=== PATIENT | male | born 1960 | race American Indian/Alaskan Native ===

== ENCOUNTER 2017-10-24 14:17 | Emergency (ER) | payer SELFPAY ==
[2017-10-24 14:24] VITALS: BMI 25.0
[2017-10-24 14:28] VITALS: RESP 18; TEMP 98.9
--- NOTE | 2017-10-24 14:46 | C.PDOC ---
History Of Present Illness 57 year old male presents to the ED complaining of left inguinal pain radiating down his left leg for the past 5 days. He describes pain as intermittent and worse with standing up straight with associated numbness in his left thigh. He applied a topical ointment with mild relief. Patient denies any fever, testicular pain or swelling, vomiting, diarrhea, incontinence, or trauma/ injuries. 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 Time Seen by Provider: 10/24/17 14:31 Chief Complaint (Nursing): Abdominal Pain History Per: Patient History/Exam Limitations: no limitations Onset/Duration Of Symptoms: Days Current Symptoms Are (Timing): Still Present Severity: Severe Location Of Pain/Discomfort: LLQ Radiation Of Pain To:: Leg (Left) Quality Of Discomfort: "Pain" Associated Symptoms: denies: Fever, Nausea, Vomiting, Urinary Symptoms Exacerbating Factors: Upright Position Past Medical History Reviewed: Historical Data, Nursing Documentation, Vital Signs Vital Signs: Last Vital Signs Temp 98.9 F 10/24/17 14:24 Pulse 112 H 10/24/17 14:24 Resp 18 10/24/17 14:24 BP 161/110 H 10/24/17 14:24 Pulse Ox 98 10/24/17 17:46 - Medical History PMH: Hepatitis (C) Other PMH: History of GI disorders, Endocrine disorders, Musculoskeletal disorders Other Surgeries: Hx of surgeries - [facility] Procedures ING HERNIA REP-GRAFT NOS (12/21/12) Family History: States: No Known Family Hx - Social History Hx Alcohol Use: No Hx Substance Use: No - Immunization History Hx Tetanus Toxoid Vaccination: No Hx Influenza Vaccination: No Hx Pneumococcal Vaccination: No Review Of Systems Constitutional: Negative for: Fever Gastrointestinal: Negative for: Vomiting, Diarrhea Genitourinary: Negative for: Incontinence Musculoskeletal: Positive for: Other (Left inguinal pain radiating down left leg ) Neurological: Positive for: Numbness Physical Exam - Physical Exam Appears: Non-toxic Skin: Normal Color, Warm, Dry Head: Atraumatic, Normacephalic Eye(s): bilateral: Normal Inspection, EOMI Oral Mucosa: Moist Neck: Normal ROM Chest: Symmetrical Cardiovascular: Rhythm Regular Respiratory: Normal Breath Sounds, No Rales, No Rhonchi, No Wheezing Gastrointestinal/Abdominal: Soft, No Tenderness, No Mass, No Distention, No Guarding, No Hernia Back: Normal Inspection, No Vertebral Tenderness, No Paraspinal Tenderness Male Genital: No Testicular Tenderness, No Testicular Swelling, No Inguinal Tenderness, No Scrotal Swelling Extremity: No Normal ROM (Limited ROM due to pain to left leg ) Neurological/Psych: Oriented x3, Normal Speech Gait: Steady ED Course And Treatment - Laboratory Results Result Diagrams: 10/24/17 15:22 10/24/17 15:22 O2 Sat by Pulse Oximetry: 98 - CT Scan/US CT Abd/Pel Other Rad Studies (CT/US): Read By Radiologist, Radiology Report Reviewed CT/US Interpretation: Accession No. : [id number]. Patient Name / ID : ERIC OLSEN W / [id number]. Exam Date : 10/24/2017 16:17:06 ( Approved ). Study Comment : Sex / Age : M / 57Y. Creator : Lili Navarro. Dictator : Cylinder Dyer : Brush Loader And Handle Attacher : Anthony Vernon MD. Approver2 : Report Date : 10/24/2017 16:48:23. My Comment : . PROCEDURE: CT Abdomen and Pelvis . HISTORY: Left inguinal pain x 5 days. COMPARISON: None. TECHNIQUE: Contiguous axial images of the abdomen and pelvis performed following intravenous injection of 100 cc Visipaque 320 contrast material. Additional 2D sagittal and coronal reformats generated. This CT exam was performed using one or more of the following dose reduction techniques: Automated exposure control, adjustment of the mA and/or kV according to patient size, and/or use of iterative reconstruction technique. Radiation dose: Total exam DLP = 405.88 mGy-cm. FINDINGS: LOWER THORAX: Heart size within range of normal. No significant pericardial effusion. There is a small hiatal hernia with wall thickening of the distal esophagus likely due to protrusion of gastric mucosa. Possibility of esophagitis not excluded. Lung bases clear. No infiltrate effusion or basilar pneumothorax. LIVER: Liver exhibits normal size. Mild diffuse fatty hepatic infiltration. Portal and splenic veins opacified. The the. GALLBLADDER AND BILE DUCTS: Gallbladder is physiologically distended. No evidence of intraluminal gallbladder calculi. PANCREAS: Unremarkable. No mass. No ductal dilatation. SPLEEN: Unremarkable. No splenomegaly. ADRENALS: Unremarkable. KIDNEYS AND URETERS: There appears to be a small low-attenuation focus lateral aspect cortex upper/ midpole left kidney too small to characterize. . Recommend follow-up ultrasound to exclude the possibility of a hyperdense cyst or possibly a solid mass. BLADDER: Urinary bladder is incompletely distended which likely accounts for thick- walled appearance. The possibility of a cystitis not excluded. Correlation with urinalysis recommended. REPRODUCTIVE: Prostate gland measures approximately 4.1 cm in transverse dimension. APPENDIX: The appendix is not seen with certainty however no definitive evidence to suggest acute appendicitis. BOWEL: Evaluation of the bowel is limited due to the lack of oral contrast material. Stomach is collapsed which presumably accounts for thick-walled appearance. Gastritis or other intrinsic wall lesion not excluded. Visualized loops of small bowel exhibit normal contour and caliber. No evidence of acute mechanical small bowel obstruction. Stool and air seen throughout most of the colon with no definitive evidence of mural wall thickening or obstruction. PERITONEUM: Unremarkable. No fluid collection. No free air. Postoperative changes of right inguinal herniorrhaphy. There appears to be a small left inguinal hernia containing what probably represents some mesentery and possibly some granulation tissue. Small fat containing umbilical hernia. LYMPH NODES: Unremarkable. No enlarged lymph nodes. VASCULATURE: Unremarkable. No aortic aneurysm. BONES: Mild multilevel degenerative spondylosis of the lower thoracic and lumbar spine. OTHER FINDINGS: None. IMPRESSION: Postoperative changes of right inguinal herniorrhaphy. . There appears to be a small fat containing left inguinal hernia that may also contain some granulation tissue. Small fat containing umbilical hernia. Appendix not seen with any certainty however no obvious inflammatory changes right lower quadrant of the abdomen. Mild fatty hepatic infiltration. There is a small low -attenuation focus lateral cortex upper/midpole left kidney which is too small to characterize though could represent a small hyperdense cyst. Recommend follow-up ultrasound to exclude the possibility of a solid lesion. Medical Decision Making Medical Decision Making: Impression: Left Inguinal pain Order: - CT Abd/Pel - Labs - UA - Toradol 30mg IVP Patient assessed and examined. Orders placed in for blood work. Urine collected and sent to lab for analysis. CT Abd/Pel ordered and reviewed. Labs reviewed with no acute findings. CT of abdomen shows fat containing left inguinal hernia, no other acute abnormality. Patient reevaluated and resting supine on stretcher. I explained the results with patient, and provided copy of results. Patient does not have any tenderness on abdomen or signs of acute surgical abdomen. Patient is stable for discharge. Rx was given. Recommend follow up with clinic and surgery. Patient has history of prior hernia repair . Disposition Counseled Patient/Family Regarding: Studies Performed, Need For Followup, Rx Given - Disposition Referrals: Alfredo Garza Jr., MD [Staff Provider] - Nilda King MD [Staff Provider] - Disposition: HOME/ ROUTINE Disposition Time: 17:38 Condition: STABLE Additional Instructions: Follow up with the clinic in 2-5 days for further evaluation and seek surgical consult. Take medications as prescribed. Return to the emergency department at any time if symptoms persist or worsen. You may call [facility] service for any assistance [phone]. Prescriptions: Ibuprofen [Motrin] 600 mg PO Q8 #30 tab traMADol [Ultram] 50 mg PO Q8 #20 tab Instructions: Inguinal and Femoral (Groin) Hernias Forms: [employer] (Georgian), Work Excuse - POA Present On Arrival: None - Clinical Impression Clinical Impression: Left inguinal hernia - PA / HISTOLOGY SUPERVISOR / Resident Statement MD/DO has reviewed & agrees with the documentation as recorded. - Scribe Statement The provider has reviewed the documentation as recorded by the Scribe Izabela Hutton All medical record entries made by the Haimibmary jane were at my direction and personally dictated by me. I have reviewed the chart and agree that the record accurately reflects my personal performance of the history, physical exam, medical decision making, and the department course for this patient. I have also personally directed, reviewed, and agree with the discharge instructions and disposition.
[2017-10-24 15:30] LABS: BASO # 0.1 K/uL (0.0-0.2); BASO % 0.7 % (0.0-2.0); EOS % 0.5 % (0.0-4.0); HEMOGLOBIN 13.4 g/dL (12.0-18.0); LYMPH # 1.1 K/uL (1.0-4.3); LYMPH % 15.3 % (20.0-40.0); MEAN CELL VOLUME 88.9 fL (80.0-94.0); MEAN CORPUSCULAR HGB CONC 32.6 g/dL (33.0-37.0); MEAN PLATELET VOLUME 7.3 fL (7.2-11.7); MONO # 0.7 K/uL (0.0-0.8); MONO % 9.9 % (0.0-10.0); NEUT # 5.4 K/uL (1.8-7.0); NEUT % 73.6 % (50.0-75.0); RBC 4.63 Mil/uL (4.40-5.90); RED CELL DISTRIBUTION WIDTH 14.5 % (11.5-14.5); WHITE BLOOD COUNT 7.3 K/uL (4.8-10.8)
[2017-10-24 15:36] LABS: SQUAMOUS EPITHIAL < 1 /hpf (0-5); URINE BILIRUBIN NEGATIVE (NEGATIVE); URINE BLOOD NEGATIVE (NEGATIVE); URINE CLARITY Clear (Clear); URINE COLOR Yellow (YELLOW); URINE GLUCOSE (UA) NORMAL (Normal); URINE LEUKOCYTE ESTERASE NEG Leu/uL (Negative); URINE PROTEIN 1+ mg/dL (NEGATIVE); URINE UROBILINOGEN NORMAL mg/dL (0.2-1.0)
[2017-10-24 15:50] LABS: ALB/GLOB RATIO 1.2 (1.0-2.1); ALBUMIN 4.1 g/dL (3.5-5.0); ALT/SGPT 30 U/L (21-72); AST/SGOT 25 U/L (17-59); BLOOD UREA NITROGEN 14 mg/dL (9-20); CALCIUM 9.5 mg/dl (8.6-10.4); GFR AFRICAN-AMERICAN > 60; GFR NON-AFRICAN AMERICAN > 60; LIPASE 94 U/L (23-300)
[2017-10-24] MEDS ORDERED: Iodixanol 320 MG/ML 100 ML BOTTLE IV ONE (16:05)
--- NOTE | 2017-10-24 17:25 | CT ---
PROCEDURE: CT Abdomen and Pelvis . HISTORY: Left inguinal pain x 5 days COMPARISON: None. TECHNIQUE: Contiguous axial images of the abdomen and pelvis performed following intravenous injection of 100 cc Visipaque 320 contrast material. Additional 2D sagittal and coronal reformats generated. This CT exam was performed using one or more of the following dose reduction techniques: Automated exposure control, adjustment of the mA and/or kV according to patient size, and/or use of iterative reconstruction technique. Radiation dose: Total exam DLP = 405.88 mGy-cm. FINDINGS: LOWER THORAX: Heart size within range of normal. No significant pericardial effusion. There is a small hiatal hernia with wall thickening of the distal esophagus likely due to protrusion of gastric mucosa. Possibility of esophagitis not excluded. Lung bases clear. No infiltrate effusion or basilar pneumothorax. LIVER: Liver exhibits normal size. Mild diffuse fatty hepatic infiltration. Portal and splenic veins opacified. The the GALLBLADDER AND BILE DUCTS: Gallbladder is physiologically distended. No evidence of intraluminal gallbladder calculi PANCREAS: Unremarkable. No mass. No ductal dilatation. SPLEEN: Unremarkable. No splenomegaly. ADRENALS: Unremarkable. KIDNEYS AND URETERS: There appears to be a small low-attenuation focus lateral aspect cortex upper/ midpole left kidney too small to characterize. . Recommend follow-up ultrasound to exclude the possibility of a hyperdense cyst or possibly a solid mass. BLADDER: Urinary bladder is incompletely distended which likely accounts for thick-walled appearance. The possibility of a cystitis not excluded. Correlation with urinalysis recommended. REPRODUCTIVE: Prostate gland measures approximately 4.1 cm in transverse dimension. APPENDIX: The appendix is not seen with certainty however no definitive evidence to suggest acute appendicitis. BOWEL: Evaluation of the bowel is limited due to the lack of oral contrast material. Stomach is collapsed which presumably accounts for thick-walled appearance. Gastritis or other intrinsic wall lesion not excluded. Visualized loops of small bowel exhibit normal contour and caliber. No evidence of acute mechanical small bowel obstruction. Stool and air seen throughout most of the colon with no definitive evidence of mural wall thickening or obstruction. PERITONEUM: Unremarkable. No fluid collection. No free air. Postoperative changes of right inguinal herniorrhaphy. There appears to be a small left inguinal hernia containing what probably represents some mesentery and possibly some granulation tissue. Small fat containing umbilical hernia. LYMPH NODES: Unremarkable. No enlarged lymph nodes. VASCULATURE: Unremarkable. No aortic aneurysm. BONES: Mild multilevel degenerative spondylosis of the lower thoracic and lumbar spine. OTHER FINDINGS: None. IMPRESSION: Postoperative changes of right inguinal herniorrhaphy. . There appears to be a small fat containing left inguinal hernia that may also contain some granulation tissue. Small fat containing umbilical hernia. Appendix not seen with any certainty however no obvious inflammatory changes right lower quadrant of the abdomen. Mild fatty hepatic infiltration. There is a small low-attenuation focus lateral cortex upper/midpole left kidney which is too small to characterize though could represent a small hyperdense cyst. Recommend follow-up ultrasound to exclude the possibility of a solid lesion.
[2017-10-24 18:03] VITALS: BP 149/94; PULSE 92
[2017-10-24 18:31] VITALS: O2SAT 98
== END 2017-10-24 18:36 | disposition home or self-care (01) ==
LOC: C.ER 14:17
DX: K40.90 Unilateral inguinal hernia, without obstruction or gangrene, not specified as recurrent (principal)
CPT/HCPCS: 74177; 80053; 81001; 83690; 85025; 96374; 99285; J1885; Q9967

== ENCOUNTER 2017-10-26 08:15 | Inpatient (IN) | payer SELFPAY ==
[2017-10-26 08:16] VITALS: BMI 25.0
[2017-10-26 09:34] LABS: BASO % 0.7 % (0.0-2.0); EOS # 0.1 K/uL (0.0-0.7); EOS % 1.8 % (0.0-4.0); HEMOGLOBIN 13.4 g/dL (12.0-18.0); LYMPH # 1.1 K/uL (1.0-4.3); LYMPH % 20.8 % (20.0-40.0); MEAN CORPUSCULAR HEMOGLOBIN 29.9 pg (27.0-31.0); MEAN CORPUSCULAR HGB CONC 33.6 g/dL (33.0-37.0); MEAN PLATELET VOLUME 7.7 fL (7.2-11.7); MONO # 0.6 K/uL (0.0-0.8); MONO % 11.2 % (0.0-10.0); NEUT # 3.5 K/uL (1.8-7.0); NEUT % 65.5 % (50.0-75.0); NRBC % 0.1 % (0.0-2.0); RBC 4.48 Mil/uL (4.40-5.90); RED CELL DISTRIBUTION WIDTH 14.7 % (11.5-14.5); WHITE BLOOD COUNT 5.3 K/uL (4.8-10.8)
[2017-10-26 09:49] LABS: PROTHROMBIN TIME 11.1 SECONDS (9.7-12.2)
[2017-10-26 09:55] LABS: ALB/GLOB RATIO 1.1 (1.0-2.1); ALBUMIN 4.1 g/dL (3.5-5.0); ALT/SGPT 26 U/L (21-72); AST/SGOT 55 U/L (17-59); BLOOD UREA NITROGEN 18 mg/dL (9-20); CALCIUM 8.9 mg/dl (8.6-10.4); GFR AFRICAN-AMERICAN > 60; GFR NON-AFRICAN AMERICAN > 60; LIPASE 85 U/L (23-300)
--- NOTE | 2017-10-26 10:26 | C.PDOC ---
History Of Present Illness 57-year-old male, presents to the emergency department with complaints of left lower quadrant abdominal and left inguinal pain ongoing for the past few days. Pain worsened this morning, prompting visit. Patient recently diagnosed with left inguinal hernia. He is also complaining of new onset left thigh pain. Denies any back pain, trauma/injury, chest pain, nausea/vomiting, diarrhea, symptoms, or ny other associated symptoms. No other complaints at this time. Time Seen by Provider: 10/26/17 08:56 Chief Complaint (Nursing): Abdominal Pain History Per: Patient History/Exam Limitations: no limitations Current Symptoms Are (Timing): Still Present Severity: Moderate Past Medical History Reviewed: Historical Data, Nursing Documentation, Vital Signs Vital Signs: Last Vital Signs Temp 98.2 F 10/26/17 08:35 Pulse 77 10/26/17 08:35 Resp 20 10/26/17 08:35 BP 170/101 H 10/26/17 08:35 Pulse Ox 97 10/26/17 11:21 - Medical History PMH: Hepatitis (C) Denies: Chronic Kidney Disease - [facility] Procedures ING HERNIA REP-GRAFT NOS (12/21/12) Family History: States: No Known Family Hx - Social History Hx Alcohol Use: No Hx Substance Use: No - Immunization History Hx Tetanus Toxoid Vaccination: No Hx Influenza Vaccination: No Hx Pneumococcal Vaccination: No Review Of Systems Constitutional: Negative for: Fever, Chills Respiratory: Negative for: Shortness of Breath Gastrointestinal: Positive for: Abdominal Pain. Negative for: Nausea, Vomiting , Diarrhea Genitourinary: Positive for: Other (L inguinal pain) Musculoskeletal: Positive for: Leg Pain (L thigh pain). Negative for: Back Pain Neurological: Negative for: Weakness, Numbness, Headache, Dizziness Physical Exam - Physical Exam Appears: Non-toxic, No Acute Distress Skin: Normal Color, Warm, Dry, No Rash Head: Atraumatic, Normacephalic Eye(s): bilateral: Normal Inspection, PERRL, EOMI Nose: Normal Oral Mucosa: Moist Lips: Normal Appearing Neck: Normal ROM Chest: Symmetrical Cardiovascular: Rhythm Regular, No Murmur Respiratory: Normal Breath Sounds, No Accessory Muscle Use Gastrointestinal/Abdominal: Soft, No Tenderness, No Guarding, No Rebound Male Genital: No Testicular Tenderness, No Testicular Swelling, Inguinal Tenderness (Left), No Inguinal Swelling, No Scrotal Swelling Extremity: Normal ROM, No Tenderness, No Calf Tenderness, No Deformity, No Swelling Neurological/Psych: Oriented x3, Normal Speech ED Course And Treatment - Laboratory Results Result Diagrams: 10/26/17 09:24 10/26/17 09:24 ECG: Interpreted By Me, Viewed By Me ECG Rhythm: Sinus Rhythm ECG Interpretation: No Acute Changes Interpretation Of ECG: LVH Rate From EC O2 Sat by Pulse Oximetry: 97 (RA) Pulse Ox Interpretation: Normal Medical Decision Making Medical Decision Makin:[address] Garza, states to admit pt for OR. Surgery resident notified. Disposition Discussed With : Alfredo Garza Jr. Counseled Patient/Family Regarding: Studies Performed, Diagnosis - Disposition Disposition: HOSPITALIZED Disposition Time: 10:26 Condition: FAIR - Clinical Impression Clinical Impression: Inguinal hernia - Scribe Statement The provider has reviewed the documentation as recorded by the Scribe (Amy Perkins) All medical record entries made by the Scribe were at my direction and personally dictated by me. I have reviewed the chart and agree that the record accurately reflects my personal performance of the history, physical exam, medical decision making, and the department course for this patient. I have also personally directed, reviewed, and agree with the discharge instructions and disposition.
--- NOTE | 2017-10-26 11:00 | RAD ---
Date of service: 10/26/2017 PROCEDURE: Radiographs of the Lumbar Spine. HISTORY: thigh pain COMPARISON: CT scan of the abdomen and pelvis dated 10/24/2017. FINDINGS: BONES: Dextro convex curvature of the lumbar spine centered at L3. No listhesis. No fracture. Endplate changes. DISC SPACES: Multilevel disc space narrowing. OTHER FINDINGS: None. IMPRESSION: No acute fracture. Multilevel degenerative changes.
[2017-10-26 12:29] LABS: URINE BILIRUBIN NEGATIVE (NEGATIVE); URINE BLOOD NEGATIVE (NEGATIVE); URINE CLARITY Clear (Clear); URINE COLOR Yellow (YELLOW); URINE GLUCOSE (UA) NORMAL (Normal); URINE LEUKOCYTE ESTERASE NEG Leu/uL (Negative); URINE PROTEIN NEGATIVE (NEGATIVE); URINE UROBILINOGEN NORMAL mg/dL (0.2-1.0)
[2017-10-26] MEDS ORDERED: Propofol 10 mg/ml Inj (20 ML) ONE (14:24)
[2017-10-26] MEDS ORDERED: Midazolam 2 MG/2 ML VIAL ONE (14:24)
[2017-10-26] MEDS ORDERED: ceFAZolin IV 2 gm in Dextrose 4 GM/100 ML BAG IVPB ONE (14:32)
--- NOTE | 2017-10-26 14:52 | CP.PCM.HP ---
History of Present Illness - History of Present Illness History of Present Illness: Surgery: Dr. Garza CC: L inguinal hernia HPI: 57M w. pmh of Hep C presents w. left groin pain x 1 week. Pt states that the pain is constant with no alleviating factors. The pain radiates down his inner thigh. He states that the pain is accompanied by a reducible mass. He denies F/C. No N/V/D. No change in bowel habits. PMH: Hep-C PSH: R inguinal hernia repair Meds: MAR reviewed NKDA Social: No ETOH/Tobacco/Drugs Fhx: Non-contributory Present on Admission - Present on Admission Any Indicators Present on Admission: No Review of Systems - Review of Systems All systems: reviewed and no additional remarkable complaints except Past Patient History - Past Medical History & Family History Past Medical History?: Yes - Past Social History Smoking Status: Never Smoked - CARDIAC Hx Cardiac Disorders: No - PULMONARY Hx Respiratory Disorders: No - NEUROLOGICAL Hx Neurological Disorder: No - HEENT Hx HEENT Problems: No - RENAL Hx Chronic Kidney Disease: No - ENDOCRINE/METABOLIC Hx Endocrine Disorders: Yes (IMPAIRED GLUCOSE INTOLERANCE) - HEMATOLOGICAL/ONCOLOGICAL Hx Blood Disorders: Yes Hx Hepatitis C: Yes - INTEGUMENTARY Hx Dermatological Problems: No - MUSCULOSKELETAL/RHEUMATOLOGICAL Hx Musculoskeletal Disorders: Yes Hx Back Pain: Yes - GASTROINTESTINAL Hx Gastrointestinal Disorders: Yes Other/Comment: Hernia repair - GENITOURINARY/GYNECOLOGICAL Hx Genitourinary Disorders: No - PSYCHIATRIC Hx Substance Use: No - SURGICAL HISTORY Hx Surgeries: Yes Hx Herniorrhaphy: Yes - ANESTHESIA Hx Anesthesia: Yes Hx Anesthesia Reactions: No Hx Malignant Hyperthermia: No Meds Allergies/Adverse Reactions: Allergies Allergy/AdvReac Type Severity Reaction Status Date / Time No Known Allergies Allergy Verified 10/24/17 14:23 Physical Exam - Constitutional Appears: Non-toxic, No Acute Distress - Head Exam Head Exam: ATRAUMATIC, NORMOCEPHALIC - Eye Exam Eye Exam: EOMI - ENT Exam ENT Exam: Mucous Membranes Moist - Neck Exam Neck exam: Positive for: Full Rom - Respiratory Exam Respiratory Exam: NORMAL BREATHING PATTERN. absent: Accessory Muscle Use, Respiratory Distress - Cardiovascular Exam Cardiovascular Exam: REGULAR RHYTHM - GI/Abdominal Exam Additional comments: Reducible L inguinal hernia, tender to palpation - Extremities Exam Extremities exam: Positive for: calf tenderness - Neurological Exam Neurological exam: Alert, Oriented x3 Results - Vital Signs Recent Vital Signs: Last Vital Signs Temp 98.7 F 10/26/17 12:43 Pulse 73 10/26/17 12:43 Resp 20 10/26/17 12:43 BP 165/105 H 10/26/17 12:43 Pulse Ox 98 10/26/17 12:43 - Labs Result Diagrams: 10/26/17 09:24 10/26/17 09:24 Labs: Laboratory Results - last 24 hr 10/26/17 10/26/17 10/26/17 09:24 09:24 09:36 WBC 5.3 RBC 4.48 Hgb 13.4 Hct 39.9 MCV 89.0 MCH 29.9 MCHC 33.6 RDW 14.7 H Plt Count 231 MPV 7.7 Neut % (Auto) 65.5 Lymph % (Auto) 20.8 [place] % (Auto) 11.2 H Eos % (Auto) 1.8 Baso % (Auto) 0.7 Neut # (Auto) 3.5 Lymph # (Auto) 1.1 [place] # (Auto) 0.6 Eos # (Auto) 0.1 Baso # (Auto) 0.0 PT 11.1 INR 1.0 APTT 24 Sodium 142 Potassium 4.6 Chloride 105 Carbon Dioxide 27 Anion Gap 14 BUN 18 Creatinine 0.8 Est GFR ( Amer) > 60 Est GFR (Non-Af Amer) > 60 Random Glucose 100 Calcium 8.9 Total Bilirubin 0.8 AST 55 ALT 26 Alkaline Phosphatase 80 Total Protein 7.7 Albumin 4.1 Globulin 3.6 Albumin/Globulin Ratio 1.1 Lipase 85 Urine Color Urine Clarity Urine pH Ur Specific [place] Urine Protein Urine Glucose (UA) Urine Ketones Urine Blood Urine Nitrate Urine Bilirubin Urine Urobilinogen Ur Leukocyte Esterase Urine WBC (Auto) Urine RBC (Auto) Blood Type Antibody Screen 10/26/17 10/26/17 09:36 12:06 WBC RBC Hgb Hct MCV MCH MCHC RDW Plt Count MPV Neut % (Auto) Lymph % (Auto) [place] % (Auto) Eos % (Auto) Baso % (Auto) Neut # (Auto) Lymph # (Auto) [place] # (Auto) Eos # (Auto) Baso # (Auto) PT INR APTT Sodium Potassium Chloride Carbon Dioxide Anion Gap BUN Creatinine Est GFR ( Amer) Est GFR (Non-Af Amer) Random Glucose Calcium Total Bilirubin AST ALT Alkaline Phosphatase Total Protein Albumin Globulin Albumin/Globulin Ratio Lipase Urine Color Yellow Urine Clarity Clear Urine pH 5.0 Ur Specific [place] 1.029 Urine Protein Negative Urine Glucose (UA) Normal Urine Ketones Trace Urine Blood Negative Urine Nitrate Negative Urine Bilirubin Negative Urine Urobilinogen Normal Ur Leukocyte Esterase Neg Urine WBC (Auto) 2 Urine RBC (Auto) 3 Blood Type O NEGATIVE Antibody Screen Negative Assessment & Plan - Assessment and Plan (Free Text) Assessment: 57M w. L inguinal hernia -To OR this afternoon -NPO -EKG -consent in chart -d/w attending Natalya PGY4
[2017-10-26] MEDS ORDERED: Lidocaine Hydrochloride 0 ML INJ ONE (14:56)
[2017-10-26] MEDS ORDERED: Sodium Chloride 0.9% 1,000 ML IV SCH (15:00)
[2017-10-26] MEDS ORDERED: Succinylcholine Chloride 20 mg/ml Syr (5 ml) IV ONE (15:01)
[2017-10-26] MEDS ORDERED: Bupivacaine 0.25% 20 ML INJ IJ ONE (15:03)
[2017-10-26] MEDS: HYDROmorphone 0.5 mg/0.5 ml ISec IVP PRN ×2 (16:34→16:54)
--- NOTE | 2017-10-26 17:29 | PCM.SURG1 ---
Surgeon's Initial Post Op Note - Surgeon's Notes Surgeon: Dr. Garza [employer] Specialist: Dr. Castaneda PGY3 Type of Anesthesia: General Endo Pre-Operative Diagnosis: left inguinal hernia Operative Findings: left direct inguinal hernia Post-Operative Diagnosis: left direct inguinal hernia Operation Performed: left direct inguinal hernia repair with mesh placement Specimen/Specimens Removed: none Estimated Blood Loss: EBL {In ML}: 15 Blood Products Given: N/A Drains Used: No Drains Post-Op Condition: Good Date of Surgery/Procedure: 10/26/17 Time of Surgery/Procedure: 15:00
[2017-10-26] MEDS ORDERED: Lactated Ringer's 1,000 ML IV ONE (17:30)
[2017-10-26] MEDS: Oxycodone/Acetaminophen 5/325 mg Tab PO PRN (18:06)
[2017-10-26 22:07] VITALS: RESP 20
--- NOTE | 2017-10-27 01:30 | OP ---
PROCEDURE DATE: 10/26/2017 PREOPERATIVE DIAGNOSIS: Incarcerated left inguinal hernia. POSTOPERATIVE DIAGNOSIS: Incarcerated left inguinal hernia. PROCEDURE CARRIED OUT: Repair of incarcerated left inguinal hernia. SURGEON: Alfredo Garza Jr., MD. CARBON ACCOUNTANT: Magan Castaneda DO ANESTHESIOLOGIST: Mr. Amor. INDICATION: The patient is a middle-aged man with history previous right inguinal hernia, made multiple trips to the emergency room, came again to the emergency room this morning with severe pain in the left groin. Previous imaging has confirmed the presence of left inguinal hernia. OPERATIVE FINDINGS: This was a direct hernia. There was no indirect component. There was no bowel incarcerated, it was simply omentum, which was easily reduced. DESCRIPTION OF PROCEDURE: The patient was given general anesthesia and intravenous antibiotics. Venodyne boots were applied. The skin was then draped after washing and covering this and antibiotics given. An incision was made exposing the external oblique. The external oblique was exposed. The cord and its contents identified. The an of indirect hernia sac identified. The direct sac is identified. A PHS (Prolene hernia system) placed into the preperitoneal space and unfurled appropriately. After this had been done, it was secured to the surrounding fascia. The skin was closed with subcuticular closure and Steri-Strips. Blood loss for the procedure was 10 mL. Operation carried out was repair of incarcerated left inguinal hernia. This was an emergency procedure carried out on an emergent basis. Alfredo Garza Jr., MD
[2017-10-27] MEDS: Oxycodone/Acetaminophen 5/325 mg Tab PO PRN ×3 (07:00→20:10)
[2017-10-27] MEDS: Enoxaparin 40 mg Syringe SC SCH (10:03)
--- NOTE | 2017-10-27 12:22 | CP.PCM.PN ---
Subjective - Date & Time of Evaluation Date of Evaluation: 10/27/17 Time of Evaluation: 10:25 - Subjective Subjective: Patient seen and examined. No acute events over night. Afebrile. Complaining of left groin pain. Surgical site is c/d/i. Objective - Vital Signs/Intake and Output Vital Signs (last 24 hours): Temp Pulse Resp BP Pulse Ox 99.4 F 82 20 147/84 97 10/27/17 07:00 10/27/17 07:00 10/27/17 07:00 10/27/17 07:00 10/27/17 07:00 Intake and Output: 10/27/17 10/27/17 06:59 18:59 Intake Total 1900 Output Total 900 Balance 1000 - Medications Medications: Current Medications Enoxaparin Sodium (Lovenox) 40 mg SC DAILY [facility] Last Admin: 10/27/17 10:03 Dose: 40 mg Oxycodone/Acetaminophen (Percocet 5/325 Mg Tab) 1 tab PO Q4H PRN PRN Reason: Pain, moderate (4-7) Stop: 10/29/17 17:22 Last Admin: 10/27/17 11:22 Dose: 1 tab Oxycodone/Acetaminophen (Percocet 5/325 Mg Tab) 2 tab PO Q4H PRN PRN Reason: Pain, severe (8-10) Stop: 10/30/17 12:19 Sennosides (Senokot Tab) 17.2 mg PO [facility] Last Admin: 10/26/17 23:14 Dose: 17.2 mg - Labs Labs: 10/26/17 09:24 10/26/17 09:24 PT 11.1 SECONDS (9.7-12.2) 10/26/17 09:36 INR 1.0 10/26/17 09:36 APTT 24 SECONDS (21-34) 10/26/17 09:36 - Constitutional Appears: No Acute Distress - Head Exam Head Exam: NORMOCEPHALIC - Eye Exam Eye Exam: EOMI Pupil Exam: NORMAL ACCOMODATION - ENT Exam ENT Exam: Mucous Membranes Moist - Respiratory Exam Respiratory Exam: NORMAL BREATHING PATTERN - Cardiovascular Exam Cardiovascular Exam: +S1, +S2 - Neurological Exam Neurological Exam: Alert, Awake, Oriented x3 - Skin Skin Exam: Dry, Intact Assessment and Plan - Assessment and Plan (Free Text) Assessment: 57M with left direct inguinal hernia s/p repair w/ mesh placement POD1 Plan: -Regular diet -Encourage incentive spirometer -C/w analgesics -Encourage ambulation Further recs per Dr. Kayla Frye PGY3
[2017-10-28] MEDS: Oxycodone/Acetaminophen 5/325 mg Tab PO PRN ×3 (05:17→09:25)
[2017-10-28 08:03] VITALS: BP 169/104; PULSE 84; TEMP 98.4; O2SAT 97
--- NOTE | 2017-10-28 08:17 | CP.PCM.PN ---
Subjective - Date & Time of Evaluation Date of Evaluation: 10/28/17 Time of Evaluation: 08:13 - Subjective Subjective: General Surgery Progress Note for Dr. Garza 57M seen and evaluated this AM. Pt resting comfortably in bed. No acute events overnight. Pain is present and incision site but is well controlled. Admits BM and passing flatus. Denies f/c, n/v/d, SOB, and CP. Objective - Vital Signs/Intake and Output Vital Signs (last 24 hours): Temp Pulse Resp BP Pulse Ox 98.4 F 84 20 169/104 H 97 10/28/17 07:52 10/28/17 07:52 10/28/17 07:52 10/28/17 07:52 10/28/17 07:52 Intake and Output: 10/28/17 10/28/17 06:59 18:59 Intake Total 450 Output Total 350 Balance 100 - Medications Medications: Current Medications Enoxaparin Sodium (Lovenox) 40 mg SC DAILY [facility] Last Admin: 10/27/17 10:03 Dose: 40 mg Oxycodone/Acetaminophen (Percocet 5/325 Mg Tab) 1 tab PO Q4H PRN PRN Reason: Pain, moderate (4-7) Stop: 10/29/17 17:22 Last Admin: 10/28/17 05:21 Dose: 1 tab Oxycodone/Acetaminophen (Percocet 5/325 Mg Tab) 2 tab PO Q4H PRN PRN Reason: Pain, severe (8-10) Stop: 10/30/17 12:19 Sennosides (Senokot Tab) 17.2 mg PO [facility] Last Admin: 10/27/17 21:32 Dose: 17.2 mg - Labs Labs: 10/26/17 09:24 10/26/17 09:24 PT 11.1 SECONDS (9.7-12.2) 10/26/17 09:36 INR 1.0 10/26/17 09:36 APTT 24 SECONDS (21-34) 10/26/17 09:36 - Constitutional Appears: Well, Non-toxic, No Acute Distress - Head Exam Head Exam: ATRAUMATIC, NORMAL INSPECTION, NORMOCEPHALIC - Eye Exam Eye Exam: EOMI, Normal appearance - Respiratory Exam Respiratory Exam: Clear to Ausculation Bilateral, NORMAL BREATHING PATTERN - Cardiovascular Exam Cardiovascular Exam: REGULAR RHYTHM, +S1, +S2. absent: Murmur - GI/Abdominal Exam GI & Abdominal Exam: Soft, Normal Bowel Sounds. absent: Tenderness - Neurological Exam Neurological Exam: Alert, Awake, Oriented x3 - Psychiatric Exam Psychiatric exam: Normal Affect, Normal Mood - Skin Skin Exam: Dry, Intact, Normal Color. absent: Abrasion Assessment and Plan - Assessment and Plan (Free Text) Assessment: 57M s/p left inguinal hernia repair POD2 Plan: c/w pain control encourage ambulation and IS use no further surgical intervention at this time cleared for discharge please reconsult as needed Jj Hager PGY1
--- NOTE | 2017-10-28 08:58 | CP.PCM.DIS ---
Provider - Provider Date of Admission: 10/26/17 10:25 Attending physician: Alfredo Garza Jr, MD Time Spent in preparation of Discharge (in minutes): 30 Hospital Course - Lab Results Lab Results: Micro Results 10/26/17 12:06 Urine Urine Culture - Final No Growth (<1,000 CFU/ML) Most Recent Lab Values WBC 5.3 K/uL (4.8-10.8) 10/26/17 09:24 RBC 4.48 Mil/uL (4.40-5.90) 10/26/17 09:24 Hgb 13.4 g/dL (12.0-18.0) 10/26/17 09:24 Hct 39.9 % (35.0-51.0) 10/26/17 09:24 MCV 89.0 fL (80.0-94.0) 10/26/17 09:24 MCH 29.9 pg (27.0-31.0) 10/26/17 09:24 MCHC 33.6 g/dL (33.0-37.0) 10/26/17 09:24 RDW 14.7 % (11.5-14.5) H 10/26/17 09:24 Plt Count 231 K/uL (130-400) 10/26/17 09:24 MPV 7.7 fL (7.2-11.7) 10/26/17 09:24 Neut % (Auto) 65.5 % (50.0-75.0) 10/26/17 09:24 Lymph % (Auto) 20.8 % (20.0-40.0) 10/26/17 09:24 Pender % (Auto) 11.2 % (0.0-10.0) H 10/26/17 09:24 Eos % (Auto) 1.8 % (0.0-4.0) 10/26/17 09:24 Baso % (Auto) 0.7 % (0.0-2.0) 10/26/17 09:24 Neut # (Auto) 3.5 K/uL (1.8-7.0) 10/26/17 09:24 Lymph # (Auto) 1.1 K/uL (1.0-4.3) 10/26/17 09:24 Pender # (Auto) 0.6 K/uL (0.0-0.8) 10/26/17 09:24 Eos # (Auto) 0.1 K/uL (0.0-0.7) 10/26/17 09:24 Baso # (Auto) 0.0 K/uL (0.0-0.2) 10/26/17 09:24 PT 11.1 SECONDS (9.7-12.2) 10/26/17 09:36 INR 1.0 10/26/17:36 APTT 24 SECONDS (21-34) 10/26/17 09:36 Sodium 142 mmol/L (132-148) 10/26/17 09:24 Potassium 4.6 mmol/L (3.6-5.2) 10/26/17 09:24 Chloride 105 mmol/L (98-107) 10/26/17 09:24 Carbon Dioxide 27 mmol/L (22-30) 10/26/17 09:24 Anion Gap 14 (10-20) 10/26/17 09:24 BUN 18 mg/dL (9-20) 10/26/17 09:24 Creatinine 0.8 mg/dL (0.8-1.5) 10/26/17 09:24 Est GFR ( Amer) > 60 10/26/17 09:24 Est GFR (Non-Af Amer) > 60 10/26/17 09:24 Random Glucose 100 mg/dL (75-110) 10/26/17 09:24 Calcium 8.9 mg/dl (8.6-10.4) 10/26/17 09:24 Total Bilirubin 0.8 mg/dL (0.2-1.3) 10/26/17 09:24 AST 55 U/L (17-59) 10/26/17 09:24 ALT 26 U/L (21-72) 10/26/17 09:24 Alkaline Phosphatase 80 U/L (38-126) 10/26/17 09:24 Total Protein 7.7 g/dL (6.3-8.3) 10/26/17 09:24 Albumin 4.1 g/dL (3.5-5.0) 10/26/17 09:24 Globulin 3.6 gm/dL (2.2-3.9) 10/26/17 09:24 Albumin/Globulin Ratio 1.1 (1.0-2.1) 10/26/17 09:24 Lipase 85 U/L (23-300) 10/26/17 09:24 Urine Color Yellow (YELLOW) 10/26/17 12:06 Urine Clarity Clear (Clear) 10/26/17 12:06 Urine pH 5.0 (5.0-8.0) 10/26/17 12:06 Ur Specific [place] 1.029 (1.003-1.030) 10/26/17 12:06 Urine Protein Negative mg/dL (NEGATIVE) 10/26/17 12:06 Urine Glucose (UA) Normal mg/dL (Normal) 10/26/17 12:06 Urine Ketones Trace mg/dL (NEGATIVE) 10/26/17 12:06 Urine Blood Negative (NEGATIVE) 10/26/17 12:06 Urine Nitrate Negative (NEGATIVE) 10/26/17 12:06 Urine Bilirubin Negative (NEGATIVE) 10/26/17 12:06 Urine Urobilinogen Normal mg/dL (0.2-1.0) 10/26/17 12:06 Ur Leukocyte Esterase Neg Hansel/uL (Negative) 10/26/17 12:06 Urine WBC (Auto) 2 /hpf (0-5) 10/26/17 12:06 Urine RBC (Auto) 3 /hpf (0-3) 10/26/17 12:06 Blood Type O NEGATIVE 10/26/17 09:36 Antibody Screen Negative 10/26/17 09:36 - Hospital Course Hospital Course: Mr. Jefferson Feldman came into [facility] Emergency Department 10/26/17 for left sided abdominal pain that is accompanied by a reducible mass. Dr. Garza examined the patient and scheduled him for the operating room for repair of an incarcerated left inguinal hernia with mesh. Patient tolerated the procedure with no post-operative complications. We managed his pain, encouraged incentive spirometer use and ambulation, and monitored the incision site over the course of his hospital stay. On 10/28/17 he was cleared for discharge. This is a brief summary of Mr. Feldman's hospital stay. For more details please refer to medical records. Discharge Exam - Head Exam Head Exam: ATRAUMATIC, NORMAL INSPECTION, NORMOCEPHALIC - Eye Exam Eye Exam: EOMI, Normal appearance - ENT Exam ENT Exam: Mucous Membranes Moist, Normal Exam - Neck Exam Neck exam: Full Rom, Normal Inspection - Respiratory Exam Respiratory Exam: NORMAL BREATHING PATTERN, UNREMARKABLE - Cardiovascular Exam Cardiovascular Exam: REGULAR RHYTHM, +S1, +S2 - GI/Abdominal Exam GI & Abdominal Exam: Normal Bowel Sounds. absent: Distended, Firm, Guarding, Mass Additional comments: left inguinal dressings c/d/i - Extremities Exam Extremities exam: normal inspection - Neurological Exam Neurological exam: Alert, Oriented x3 - Psychiatric Exam Psychiatric exam: Normal Affect, Normal Mood - Skin Skin Exam: Dry, Intact, Normal Color, Warm Discharge Plan - Discharge Medications Prescriptions: amLODIPine [Norvasc] 10 mg PO DAILY #30 tab - Follow Up Plan Condition: GOOD Disposition: HOME/ ROUTINE Patient education suggested?: Yes Instructions: Hernia Repair (DC), Inguinal Hernia (DC) Additional Instructions: Please follow up with Dr. Garza in 1-2 weeks. Do not remove steri-strips, they will come off on their own. Ibuprofen or tylenol for pain. Please do not take on an empty stomach. For questions or concerns please call Dr. Garza's office. If you get a fever, please return to the ED. Referrals: Alfredo Garza Jr., MD [Staff Provider] -
[2017-10-28] MEDS: Enoxaparin 40 mg Syringe SC SCH (09:25)
--- NOTE | 2017-10-28 12:26 | CARD ---
APPROVED REPORT Date of service: 10/26/2017 EKG Measurement Heart [id number] <Conclusion> Normal sinus rhythm Moderate voltage criteria for LVH, may be normal variant Borderline ECG
--- NOTE | 2017-10-28 14:00 | CP.PCM.CON ---
<Rosangela Ragsdale - Last Filed: 10/28/17 13:54> History of Present Illness - History of Present Illness History of Present Illness: CC: elevated BP Mr. Feldman is a 57 year old male with no significant PMH POD#1 left inguinal hernia repair. His home Norvasc had been discontinued during hospital stay and his pressures had been elevated during his hospital course. He denies any headache, palpitations, dizziness, blurry vision, double vision, tinnitus, sweating, chills, shortness of breath, nausea, vomiting, skin changes , numbness or tingling. Review of Systems - Constitutional Constitutional: absent: Chills, Excessive Sweating, Fatigue, Fever, Headache, Lethargy, Malaise, Night Sweats, Snoring, Sleep Apnea, Weight Gain, Weight Loss , Weakness - EENT Eyes: absent: Blind Spots, Blurred Vision, Diplopia, Discharge, Dry Eye, Exophthalmos, Irritation, Pain, Sees Flashes Ears: absent: Ear Discharge, Tinnitus, Abnormal Hearing, Disequilibrium, Dizziness Nose/Mouth/Throat: absent: Epistaxis, Nasal Congestion, Nasal Discharge, Nose Pain, Bleeding Gums, Change in Voice, Sore Throat, Throat Swelling, Tongue Swelling - Cardiovascular Cardiovascular: absent: Chest Pain, Claudication, Diaphoresis, Dyspnea, Edema, Pain Radiating to Arm/Neck/Jaw, Leg Ulcers, Orthopnea, Palpitations, Pedal Edema , Radiating Pain, Slow Heart Rate, Syncope - Respiratory Respiratory: absent: Cough, Dyspnea, Hemoptysis, Wheezing, Pain on Inspiration, Chest Congestion - Gastrointestinal Gastrointestinal: absent: Abdominal Pain, Belching, Bloating, Constipation, Cramping, Diarrhea, Dysphagia, Loose Stools, Melena - Genitourinary Genitourinary: absent: Urinary Frequency, Urinary Hesitance - Musculoskeletal Musculoskeletal: absent: Joint Swelling, Muscle Cramps, Numbness, Stiffness, Tingling - Integumentary Integumentary: absent: Change in Pigmentation, New Lesions, Non-Healing Lesions , Pruritus, Striae, Unusual Bruising, Wounds, Jaundice - Neurological Neurological: absent: Confusion, Convulsions, Disequilibrium, Dizziness, Numbness, Frequent Falls, Headaches, Memory Loss, Tingling - Psychiatric Psychiatric: absent: Anxiety, Behavioral Changes, Confusion, Depression, Irritability, Mood Swings, Paranoia, Suicidal Ideation - Endocrine Endocrine: absent: Cold Intolorance, Heat Intolorance, Palpitations - Hematologic/Lymphatic Hematologic: absent: Easy Bleeding, Easy Bruising Past Patient History - Past Medical History & Family History Past Medical History?: Yes - Past Social History Smoking Status: Never Smoked Alcohol: None Drugs: Denies - CARDIAC Hx Cardiac Disorders: No - PULMONARY Hx Respiratory Disorders: No - NEUROLOGICAL Hx Neurological Disorder: No - HEENT Hx HEENT Problems: No - RENAL Hx Chronic Kidney Disease: No - ENDOCRINE/METABOLIC Hx Endocrine Disorders: Yes (IMPAIRED GLUCOSE INTOLERANCE) - HEMATOLOGICAL/ONCOLOGICAL Hx Blood Disorders: Yes Hx Hepatitis C: Yes - INTEGUMENTARY Hx Dermatological Problems: No - MUSCULOSKELETAL/RHEUMATOLOGICAL Hx Musculoskeletal Disorders: Yes Hx Back Pain: Yes Hx Falls: No - GASTROINTESTINAL Hx Gastrointestinal Disorders: Yes Other/Comment: Hernia repair - GENITOURINARY/GYNECOLOGICAL Hx Genitourinary Disorders: No - PSYCHIATRIC Hx Substance Use: No - SURGICAL HISTORY Hx Surgeries: Yes Hx Herniorrhaphy: Yes - ANESTHESIA Hx Anesthesia: Yes Hx Anesthesia Reactions: No Hx Malignant Hyperthermia: No Has any member of the family had a problem w/ anesthesia?: No Meds Home Medications: Home Medication List Medication Instructions Recorded Confirmed Type amLODIPine [Norvasc] 10 mg PO DAILY tab 10/28/17 Rx amLODIPine [Norvasc] 10 mg PO DAILY #30 tab 10/28/17 Rx Allergies/Adverse Reactions: Allergies Allergy/AdvReac Type Severity Reaction Status Date / Time No Known Allergies Allergy Verified 10/24/17 14:23 - Medications Medications: Current Medications Enoxaparin Sodium (Lovenox) 40 mg SC DAILY [facility] Last Admin: 10/28/17 09:25 Dose: 40 mg Oxycodone/Acetaminophen (Percocet 5/325 Mg Tab) 1 tab PO Q4H PRN PRN Reason: Pain, moderate (4-7) Stop: 10/29/17 17:22 Last Admin: 10/28/17 05:21 Dose: 1 tab Oxycodone/Acetaminophen (Percocet 5/325 Mg Tab) 2 tab PO Q4H PRN PRN Reason: Pain, severe (8-10) Stop: 10/30/17 12:19 Last Admin: 10/28/17 09:25 Dose: 2 tab Sennosides (Senokot Tab) 17.2 mg PO HS [facility] Last Admin: 10/27/17 21:32 Dose: 17.2 mg Physical Exam - Constitutional Appears: Well, Non-toxic, No Acute Distress - Head Exam Head Exam: ATRAUMATIC, NORMAL INSPECTION, NORMOCEPHALIC - Eye Exam Eye Exam: EOMI, Normal appearance, PERRL. absent: Conjunctival injection, Nystagmus - ENT Exam ENT Exam: Mucous Membranes Moist, Normal Exam - Respiratory Exam Respiratory Exam: Clear to Auscultation Bilateral, NORMAL BREATHING PATTERN. absent: Accessory Muscle Use, Rales, Rhonchi, Wheezes - Cardiovascular Exam Cardiovascular Exam: REGULAR RHYTHM, RRR, +S1, +S2. absent: Rubs, Systolic Murmur - GI/Abdominal Exam GI & Abdominal Exam: Normal Bowel Sounds, Soft, Tenderness. absent: Guarding Additional comments: slight tenderness to palpation over left inguinal hernia repair site area is clean and covered with steri strips, no erythema, edema - Extremities Exam Extremities exam: Positive for: full ROM, normal inspection, pedal pulses present. Negative for: tenderness Additional comments: IV removed - Neurological Exam Neurological exam: Alert, CN II-XII Intact, Normal Gait, Oriented x3, Reflexes Normal - Psychiatric Exam Psychiatric exam: Normal Affect, Normal Mood - Skin Skin Exam: Dry, Intact, Normal Color, Warm Results - Vital Signs Recent Vital Signs: Last Vital Signs Temp 98.4 F 10/28/17 07:52 Pulse 84 10/28/17 07:52 Resp 20 10/28/17 07:52 BP 169/104 H 10/28/17 07:52 Pulse Ox 97 10/28/17 07:52 - Labs Result Diagrams: 10/26/17 09:24 10/26/17 09:24 Assessment & Plan (1) Hypertension Assessment and Plan: Home Norvasc discontinued during hospital stay SBP decreased to 155 after 30 min of home dose Norvasc 10mg po stat Patient is asymptomatic Patient was given a short term prescription to refill Norvasc: 1 tab po daily @ 0800 #30, no refills Educated on keeping a log of blood pressures and heart rate before each meal Advised to visit [facility], provided with contact information, within 10 days to review log and follow up on regimen. Status: Chronic - Date & Time Date: 10/28/17 Time: 14:08 <Jarrod Kang - Last Filed: 10/28/17 19:21> Results - Vital Signs Recent Vital Signs: Last Vital Signs Temp 98.4 F 10/28/17 07:52 Pulse 84 10/28/17 07:52 Resp 20 10/28/17 07:52 BP 169/104 H 10/28/17 07:52 Pulse Ox 97 10/28/17 07:52 - Labs Result Diagrams: 10/26/17 09:24 10/26/17 09:24 Attending/Attestation - Attestation I have personally seen and examined this patient.: Yes I have fully participated in the care of the patient.: Yes I have reviewed all pertinent clinical information: Yes Notes (Text): 10/28/17 19:19 Patient was seen and examined at 10:00 AM History, Physical, Assessment and Plan were gone over with the resident. Hand written note along with prescription was given to patient by me with his information/directions for follow. Jarrod Kang D.O.
== END 2017-10-28 15:41 | disposition home or self-care (01) | DRG 352 ==
LOC: C.ER 08:15 → C.9E 10:25 → C.5S 13:45
PROVIDERS: ADMIT Surgery Vascular Surgery; ATTEND Surgery Vascular Surgery
PROC: 0YU60JZ Supplement Left Inguinal Region with Synthetic Substitute, Open Approach (ICD-10-PCS; principal; 2017-10-26 14:00)
DX: K40.30 Unilateral inguinal hernia, with obstruction, without gangrene, not specified as recurrent (principal); I10 Essential (primary) hypertension; R73.02 Impaired glucose tolerance (oral)

== ENCOUNTER 2017-11-03 12:41 | Emergency (ER) | payer SELFPAY ==
[2017-11-03 12:41] VITALS: BMI 25.0
[2017-11-03 12:51] VITALS: O2SAT 99
--- NOTE | 2017-11-03 14:40 | C.PDOC ---
History Of Present Illness 57 y/o male presents to ED with c/o groin pain and left knee pain for 2 weeks. Patient states he was seen at ED recently for similar complaints and diagnosed with inguinal hernia which he had repaired by Dr. Soria, however was told knee pain had nothing to do with hernia. Patient has used anti-inflammatory medication with no improvement and admits to numbness on left thigh. Patient denies injury, over use, swelling, redness or any other complaints at this time. Time Seen by Provider: 11/03/17 13:22 Chief Complaint (Nursing): Lower Extremity Problem/Injury History Per: Patient History/Exam Limitations: no limitations Onset/Duration Of Symptoms: Days Current Symptoms Are (Timing): Still Present Past Medical History Reviewed: Historical Data, Nursing Documentation, Vital Signs Vital Signs: Last Vital Signs Temp 97.8 F 11/03/17 12:47 Pulse 125 H 11/03/17 12:47 Resp 20 11/03/17 12:47 BP 103/72 11/03/17 12:47 Pulse Ox 99 11/03/17 14:44 - Medical History PMH: Hepatitis (C), HTN Surgical History: No Surg Hx - [facility] ING HERNIA REP-GRAFT NOS (12/21/12) SUPPLEMENT L INGUINAL REGION WITH SYNTH SUB, OPEN APPROACH (10/26/17) Family History: States: No Known Family Hx - Social History Hx Alcohol Use: No Hx Substance Use: No - Immunization History Hx Tetanus Toxoid Vaccination: No Hx Influenza Vaccination: No Hx Pneumococcal Vaccination: No Review Of Systems Constitutional: Negative for: Fever, Chills Gastrointestinal: Negative for: Nausea, Vomiting Genitourinary: Positive for: Other (groin pain) Musculoskeletal: Positive for: Leg Pain. Negative for: Back Pain Skin: Negative for: Rash Neurological: Positive for: Numbness (to left thigh). Negative for: Weakness Physical Exam - Physical Exam Appears: Non-toxic, No Acute Distress Skin: Warm, Dry, No Rash Head: Atraumatic, Normacephalic Eye(s): bilateral: Normal Inspection Oral Mucosa: Moist Cardiovascular: Rhythm Regular Respiratory: Normal Breath Sounds, No Rales, No Rhonchi, No Wheezing Gastrointestinal/Abdominal: Soft, No Tenderness, Guarding, No Rebound Back: No CVA Tenderness, No Paraspinal Tenderness Extremity: Tenderness (mild to superior edge of left patella), Capillary Refill (<2 seconds), No Deformity Extremity: Bilateral: Normal ROM Pulses: Left Dorsalis Pedis: Normal Neurological/Psych: Oriented x3, Normal Speech, Normal Motor, Normal Sensation ED Course And Treatment O2 Sat by Pulse Oximetry: 99 (RA) Pulse Ox Interpretation: Normal Progress Note: Xray showed no fracture or effusion. Treated with Prednisone 60 mg po. Patient discharged with follow up to clinic in 1-2 days. Disposition Counseled Patient/Family Regarding: Studies Performed, Diagnosis, Need For Followup, Rx Given - Disposition Referrals: [facility] [Outside] Disposition: HOME/ ROUTINE Disposition Time: 14:50 Condition: STABLE Additional Instructions: Activity as tolerated. do not take Ibuprophen or Advil or Motrin while on the Prednisone. Take Tylenol if additional medication is needed for pain. Prescriptions: Prednisone 50 mg PO DAILY #4 tab Instructions: Chronic Knee Pain Forms: [facility] (Nigerien) - Clinical Impression Clinical Impression: Knee pain, left anterior - Scribe Statement The provider has reviewed the documentation as recorded by the Haimibmary jane Mao All medical record entries made by the Kumar were at my direction and personally dictated by me. I have reviewed the chart and agree that the record accurately reflects my personal performance of the history, physical exam, medical decision making, and the department course for this patient. I have also personally directed, reviewed, and agree with the discharge instructions and disposition.
--- NOTE | 2017-11-03 15:09 | RAD ---
Date of service: 11/03/2017 PROCEDURE: Left Knee Radiographs. HISTORY: Pain. COMPARISON: None. FINDINGS: BONES: Normal. No fracture. JOINTS: Joint spaces preserved. . Tiny enthesophyte seen arising from the superior anterior patella JOINT EFFUSION: None. OTHER FINDINGS: None. IMPRESSION: No evidence of acute displaced fracture nor dislocation.
[2017-11-03 15:14] VITALS: BP 121/86; PULSE 106; RESP 18; TEMP 98.7
== END 2017-11-03 15:27 | disposition home or self-care (01) ==
LOC: C.ER 12:41
DX: M25.562 Pain in left knee (principal)

== ENCOUNTER 2017-11-17 09:37 | Emergency (ER) | payer SELFPAY ==
[2017-11-17 09:37] VITALS: BMI 25.0
[2017-11-17 09:55] VITALS: BP 124/89; PULSE 102; RESP 16; TEMP 98; O2SAT 100
--- NOTE | 2017-11-17 10:35 | C.PDOC ---
History Of Present Illness 57 y/o male presents to the ED with complaints of persistent left knee pain, ongoing for some time now. No recent fall or trauma to the knee. Patient also reports mild upper thigh discomfort s/p left inguinal hernia repair with Dr. Garza. States he has had post-op visits, and was told the area is healing well. Otherwise patient denies any numbness, tingling, focal weakness, or other complaints. Time Seen by Provider: 11/17/17 10:26 Chief Complaint (Nursing): Lower Extremity Problem/Injury History Per: Patient History/Exam Limitations: no limitations Onset/Duration Of Symptoms: Days Current Symptoms Are (Timing): Still Present Past Medical History Reviewed: Historical Data, Nursing Documentation, Vital Signs Vital Signs: Last Vital Signs Temp 98 F 11/17/17 09:53 Pulse 102 H 11/17/17 09:53 Resp 16 11/17/17 09:53 BP 124/89 11/17/17 09:53 Pulse Ox 100 11/17/17 10:35 - Medical History PMH: Hepatitis (C), HTN Denies: Chronic Kidney Disease - [facility] ING HERNIA REP-GRAFT NOS (12/21/12) SUPPLEMENT L INGUINAL REGION WITH SYNTH SUB, OPEN APPROACH (10/26/17) Family History: States: Unknown Family Hx - Social History Hx Alcohol Use: No Hx Substance Use: No - Immunization History Hx Tetanus Toxoid Vaccination: No Hx Influenza Vaccination: No Hx Pneumococcal Vaccination: No Review Of Systems Except As Marked, All Systems Reviewed And Found Negative. Constitutional: Negative for: Fever Cardiovascular: Negative for: Chest Pain Respiratory: Negative for: Shortness of Breath Gastrointestinal: Negative for: Vomiting Musculoskeletal: Positive for: Leg Pain (left anterior thigh), Other (left knee pain) Skin: Negative for: Rash Neurological: Negative for: Weakness, Numbness, Incoordination Physical Exam - Physical Exam Appears: Well, Non-toxic, No Acute Distress Skin: Warm, Dry, No Rash Head: Atraumatic, Normacephalic Eye(s): bilateral: Normal Inspection Neck: Normal ROM Extremity: Normal ROM (with full ROM of left knee; no swelling, tenderness, or skin changes), Capillary Refill (less than 2sec), No Deformity, Other (Left groin with healing surgical scar, no tenderness or swelling; Left anterior thigh with no edema, swelling, or tenderness) Pulses: Left Dorsalis Pedis: Normal, Right Dorsalis Pedis: Normal Neurological/Psych: Oriented x3, Normal Speech, Normal Cranial Nerves Gait: Steady ED Course And Treatment O2 Sat by Pulse Oximetry: 100 (RA) Pulse Ox Interpretation: Normal Medical Decision Making Medical Decision Making: Records reviewed: chronic L knee pain, normal exam and normal x-ray 11/03 Plan: NSAIDS and ice therapy reinforced. Given ice pack in the ED. Patient is stable for d/c home. Disposition Doctor Will See Patient In The: Office Counseled Patient/Family Regarding: Diagnosis, Need For Followup - Disposition Referrals: [facility] [Outside] [facility] [Outside] [place] [facility] [Outside] Alfredo Garza Jr., MD [Staff Provider] - Disposition: HOME/ ROUTINE Disposition Time: 10:35 Condition: GOOD Additional Instructions: L knee ice packs 1/2 hour per hour, nothing hot Motrin 400-600 mg every 6 hours as needed pepcid 20 mg @ night to help prevent stomach irritation from the Motrin Follow-up w our [facility] and ortho as needed F/u with Dr. Garza's office for post-op f/u as needed. Instructions: Chronic Knee Pain (DC) Forms: [facility] (Moroccan), Work Excuse - POA Present On Arrival: None - Clinical Impression Clinical Impression: Knee pain, chronic - Scribe Statement The provider has reviewed the documentation as recorded by the Scribe (Bindu Cotto) Provider Attestation: All medical record entries made by the Scribe were at my direction and personally dictated by me. I have reviewed the chart and agree that the record accurately reflects my personal performance of the history, physical exam, medical decision making, and the department course for this patient. I have also personally directed, reviewed, and agree with the discharge instructions and disposition.
== END 2017-11-17 10:43 | disposition home or self-care (01) ==
LOC: C.ER 09:37
DX: G89.29 Other chronic pain (principal); M25.562 Pain in left knee

== ENCOUNTER 2018-08-15 11:11 | Outpatient (CLI) | payer MEDICAID | END 2018-08-15 11:12 | disposition home or self-care (01) | LOC: C.USIC 11:12 | DX: N28.1 Cyst of kidney, acquired (principal) ==

== ENCOUNTER 2018-09-07 11:30 | Outpatient (CLI) | payer MEDICAID | END 2018-09-07 11:31 | disposition home or self-care (01) | LOC: C.VASC 11:30 | DX: R25.2 Cramp and spasm (principal) ==